=== PATIENT | female | born 1940 | race Caucasian/White ===

== ENCOUNTER → 2020-05-02 07:24 | Outpatient (BNVA) | payer OTHER, SELFPAY | PROVIDERS: PCP Pediatrics; Referring Provider Pediatrics; Visit Provider Internal Medicine | DX: E11.65 Type 2 diabetes mellitus with hyperglycemia (principal); M81.0 Age-related osteoporosis without current pathological fracture; E03.9 Hypothyroidism, unspecified; E78.5 Hyperlipidemia, unspecified; I10 Essential (primary) hypertension; R01.1 Cardiac murmur, unspecified; Z79.899 Other long term (current) drug therapy | CPT/HCPCS: 82947; 99212 ==

== ENCOUNTER → 2020-05-09 14:38 | Outpatient (BNVA) | payer OTHER, SELFPAY | PROVIDERS: PCP Pediatrics; Referring Provider Pediatrics; Visit Provider Internal Medicine Cardiovascular Disease | DX: R01.1 Cardiac murmur, unspecified (principal); I10 Essential (primary) hypertension | CPT/HCPCS: 93005; 99202 ==

== ENCOUNTER → 2020-05-31 11:18 | Outpatient (REF) | payer OTHER, SELFPAY ==
--- NOTE | 2020-05-31 11:25 | CA_ITS ---
Transthoracic Echocardiogram Patient (Last, First, Middle): Hayley Camarillo A Gender: Female Date of : 1940 Age: 79 Procedure Date: 05/31/2020 Procedure Type: Transthoracic Echocardiogram Location: OP Height: 144.78 cm Weight: 50.8 kg BSA: 1.41 m2 Heart Rate: bpm BP: 146 / 60 mmHg Body Artist: DSG Referring MD: Nikolai Melendez MD Symptoms: I10 - Essential (primary) hypertension Study Quality: Fair ECG Rhythm: Sinus Conclusions: - The left ventricular systolic function is normal. The visually estimated ejection fraction is between 65-70%. - There is mild aortic valve regurgitation. - There is mild mitral valve regurgitation. - Small plaque is seen in the sino tubular ridge. Findings Left Ventricle Normal left ventricular cavity size. There is normal left ventricular wall thickness. The left ventricular systolic function is normal. The visually estimated ejection fraction is between 65-70%. There is no evidence of regional wall motion abnormalities. E/E prime ratio is >15, consistent with elevated filling pressures. Evidence suggests grade I (mild) diastolic dysfunction. Right Ventricle Normal right ventricular cavity size and systolic function. Atria The left atrium is normal in size. The right atrium is normal in size. Aortic Valve There is a normal trileaflet aortic valve. There is no aortic valve stenosis. There is mild aortic valve regurgitation. Mitral Valve The mitral valve appears normal. There is mild mitral valve regurgitation. There is no mitral valve stenosis. Pulmonic Valve The pulmonic valve was not well visualized. Tricuspid Valve Normal tricuspid valve structure. There is trace tricuspid valve regurgitation. The pulmonary artery systolic pressure is normal. Great Vessels The aortic annulus, sinuses of valsalva, and asc aorta are normal in size. Small plaque is seen in the sino tubular ridge. Venous The inferior vena cava is normal in size and collapses greater than 50% with inspiration. Pericardium/Pleural There is no evidence of pericardial effusion. Prior Study Comparison No prior study available for comparison. Measurements 2D Linear Measurements IVSd: 0.70 0.6-0.9/0.6-1.0 cm LVIDd: 3.39 3.9-5.3/4.2-5.9 cm LVIDd Index: 2.40 2.4-3.2/2.2-3.1 cm/m2 LVIDs: 2.40 2.0-3.6 cm LVPWd: 0.86 0.7-1.1 cm Ao Root: 2.30 2.1-3.5 cm LA Diam: 2.60 2.7-3.8/3.0-4.0 cm LAIDs Index: 1.84 1.5-2.3 cm/m2 LV Mass: 85.39 67-162/88-224 g LV Mass Index: 60.56 43-95/49-115 g/m2 LVOT Diam: 1.70 3.0+(-)1.3 cm 2D Systolic Function EF 4C: 71.40 >55% EF 2C: 73.90 >55% EF BiP: 71.70 >55% Mitral Valve MV Pk E: 1.24 MV PK A: 1.14 MV Decel Time: 158.00 E/A: 1.10 E'Lateral: 7.74 E'Medial: 7.06 E/E' Med: 17.60 E/E' Lat: 16.00 PHT: 46.00 MVA PHT: 4.78 Decel Manatee: 7.84 Aortic Valve AoV Pk Dewey: 1.36 AoV Pk Grad: 7.00 LVOT LVOT Pk Dewey: 0.98 LVOT Mn Dewey: 0.66 LVOT VTI: 0.26 LVOT Pk Grad: 4.00 LVOT Mn Grad: 2.00 LVOT Diam: 1.70 LVOT Area: 2.27 Diastolic Function MV Pk E: 1.24 MV Pk A: 1.14 E/A: 1.10 E'Medial: 7.06 E/E' Med: 17.60 E' Laterial: 7.74 E/E' Lat: 16.00 Tricuspid Valve TR Pk Dewey: 2.20 TR Pk Grad: 19.00 RA Press: 3.00 RVSP: 22.00 Great Vessels Aorta Ao Root-2D: 2.30 2.0-3.7 cm Ao Asc: 2.70 2.1-3.4 cm Updated in Other Vendor System with Status of Final Lázaro Ortega MD electronically signed on 06/02/2020 12:17:12 PM with status of Final
== END ==
LOC: HO.CARD 11:18
PROVIDERS: Visit Provider Internal Medicine Cardiovascular Disease
DX: I10 Essential (primary) hypertension (principal)
CPT/HCPCS: 93306

== ENCOUNTER → 2020-07-04 14:32 | Outpatient (BNVA) | payer OTHER, SELFPAY | PROVIDERS: PCP Pediatrics; Visit Provider Internal Medicine Cardiovascular Disease | DX: I34.0 Nonrheumatic mitral (valve) insufficiency (principal); I35.1 Nonrheumatic aortic (valve) insufficiency; I10 Essential (primary) hypertension | CPT/HCPCS: 99212 ==

== ENCOUNTER 2020-07-23 09:50 | Outpatient (REF) | payer OTHER, SELFPAY ==
[2020-07-23 11:11] LABS: Alanine Aminotransferase 13 U/L (0-31); Albumin Level 4.7 g/dL (3.5-5.0); Alkaline Phosphatase 116 U/L (39-117); Anion Gap 12 (12-20); Aspartate Amino Transferase 18 U/L (5-31); Bilirubin Total 0.6 mg/dL (0.0-1.0); Blood Urea Nitrogen 17 mg/dL (9-16); Carbon Dioxide 32 mmol/L (22-29); Chloride 101 mmol/L (96-108); Estimated Glomerular Filt Rate > 60; Glucose Random 104 mg/dL (60-115); Potassium 4.1 mmol/L (3.3-5.1); Sodium 141 mmol/L (135-145); Total Protein 7.3 g/dL (6.5-8.0)
[2020-07-23 11:38] LABS: Thyroid Stimulating Hormone 0.02 uIU/mL (0.32-4.0)
[2020-07-23 11:41] LABS: Estimated Average Glucose 114 mg/dL; Hemoglobin A1c % 5.6 %
== END 2020-07-23 09:51 | disposition home or self-care (01) ==
LOC: HO.LAB 09:50
PROVIDERS: PCP Pediatrics; Visit Provider Internal Medicine
DX: E11.65 Type 2 diabetes mellitus with hyperglycemia (principal)
CPT/HCPCS: 36415; 80053; 83036; 84443

== ENCOUNTER → 2020-08-02 07:51 | Outpatient (BNVA) | payer OTHER, SELFPAY | PROVIDERS: PCP Pediatrics; Visit Provider Internal Medicine | DX: E03.9 Hypothyroidism, unspecified (principal); E55.9 Vitamin D deficiency, unspecified | CPT/HCPCS: 82947; 99212 ==

== ENCOUNTER 2020-09-04 11:36 | Outpatient (REF) | payer OTHER, SELFPAY ==
[2020-09-04 13:01] LABS: Albumin Level 4.7 g/dL (3.5-5.0); Calcium 9.7 mg/dL (8.4-10.2); Phosphorus 3.6 mg/dL (2.7-4.5)
[2020-09-04 13:26] LABS: Free T4 (Free Thyroxine) 1.15 ng/dL (0.71-1.85); Thyroid Stimulating Hormone 0.11 uIU/mL (0.32-4.0); Vitamin D 25-OH Total 40.5 ng/mL (>30)
[2020-09-05 08:07] LABS: Triiodothyronine T3 Total 78 ng/dL (76-181)
[2020-09-05 12:11] LABS: PTHI 32 pg/mL (14-64); Prot Elec - Albumin 4.3 g/dL (3.8-4.8); Prot Elec - Alpha1 0.3 g/dL (0.2-0.3); Prot Elec - Alpha2 0.9 g/dL (0.5-0.9); Prot Elec - Beta 1 0.4 g/dL (0.4-0.6); Prot Elec - Beta 2 0.4 g/dL (0.2-0.5); Prot Elec - Gamma 0.7 g/dL (0.8-1.7)
[2020-09-05 14:31] LABS: Calcium, Ionized 5.2 mg/dL (4.8-5.6)
== END 2020-09-04 11:37 | disposition home or self-care (01) ==
LOC: HO.LAB 11:36
PROVIDERS: PCP Pediatrics; Visit Provider Internal Medicine
DX: M81.0 Age-related osteoporosis without current pathological fracture (principal); E03.9 Hypothyroidism, unspecified; E55.9 Vitamin D deficiency, unspecified
CPT/HCPCS: 36415; 82040; 82306; 82310; 82330; 83970; 84075; 84100; 84155; 84165; 84439; 84443; 84480

== ENCOUNTER 2020-09-06 09:00 | Outpatient (REF) | payer OTHER, SELFPAY | END 2020-09-06 09:01 | disposition home or self-care (01) | LOC: HO.LNP 09:00 | PROVIDERS: Visit Provider Internal Medicine | DX: Z13.89 Encounter for screening for other disorder (principal) ==

== ENCOUNTER 2020-09-07 | Outpatient (REF) | payer OTHER, SELFPAY ==
[2020-09-07 14:21] LABS: Creatinine, mg/dL 33.35
[2020-09-07 17:49] LABS: Creatinine, 24Hr Urine 0.6 G/Day (1.0-2.0); Total Volume 24 Hour Urine 1725 mL
[2020-09-08 17:22] LABS: Calcium, 24 Hr Urine 88 mg/24 h; Calcium/Creatinine Ratio 150 mg/g creat (30-275); Creatinine 24Hr Urine 0.59 g/24 h (0.50-2.15)
== END 2020-09-07 00:01 | disposition home or self-care (01) ==
LOC: HO.LNP
PROVIDERS: Visit Provider Internal Medicine
DX: M81.0 Age-related osteoporosis without current pathological fracture (principal)
CPT/HCPCS: 82340; 82523; 82570

== ENCOUNTER → 2020-10-03 07:53 | Outpatient (BNVA) | payer OTHER, SELFPAY | PROVIDERS: PCP Pediatrics; Visit Provider Internal Medicine | DX: M81.0 Age-related osteoporosis without current pathological fracture (principal); E03.9 Hypothyroidism, unspecified; E55.9 Vitamin D deficiency, unspecified | CPT/HCPCS: 82947; 99212 ==

== ENCOUNTER 2020-10-03 08:42 | Outpatient (REF) | payer OTHER, SELFPAY ==
[2020-10-03 10:31] LABS: MANUAL DIFF FLAG NO
[2020-10-03 11:04] LABS: Basophils Percent Auto 0.3 % (0-2); Eosinophils Absolute Auto 0.1 X10*3/uL (0.0-0.4); Eosinophils Percent Auto 1.7 % (0-4); Hemoglobin 12.9 g/dl (12.0-16.0); Imm Gran Abs Auto 0.01 X10*3/uL (0.00-0.03); Imm Gran Pct Auto 0.2 % (0.0-0.4); Lymphocytes Percent Auto 33.8 % (20-40); Mean Corpuscular HGB Conc 33.1 g/dl (31.0-35.0); Mean Corpuscular Hemoglobin 30.4 pg (27.0-33.0); Mean Platelet Volume 10.6 fL (9.4-12.3); Monocytes Absolute Auto 0.5 X10*3/uL (0.1-1.2); Monocytes Percent Auto 8.1 % (2-11); Neutrophils Absolute Auto 3.3 X10*3/uL (2.0-8.3); Neutrophils Percent Auto 55.9 % (45-73); Platelet Count 268 X10*3/uL (160-400); Red Blood Count 4.24 X10*6/uL (4.20-5.50); Red Cell Distribution Width 12.5 % (11.0-16.0); White Blood Count 5.9 X10*3/uL (4.8-10.8)
[2020-10-05 22:03] LABS: Kappa, Serum 176 mg/dL (176-443); Kappa/Lambda Ratio, Serum 1.48 (1.29-2.55); Lambda, Serum 119 mg/dL (91-240)
== END 2020-10-03 08:43 | disposition home or self-care (01) ==
LOC: HO.10HDL 08:42
PROVIDERS: Visit Provider Internal Medicine
DX: M81.0 Age-related osteoporosis without current pathological fracture (principal)
CPT/HCPCS: 36415; 83883; 85025

== ENCOUNTER 2020-11-12 14:02 | Outpatient (REF) | payer OTHER, SELFPAY ==
[2020-11-12 15:40] LABS: Thyroid Stimulating Hormone 4.18 uIU/mL (0.32-4.0)
[2020-11-13 13:21] LABS: Triiodothyronine T3 Total 56 ng/dL (76-181)
== END 2020-11-12 14:03 | disposition home or self-care (01) ==
LOC: HO.LAB 14:02
PROVIDERS: PCP Pediatrics; Visit Provider Internal Medicine
DX: E03.9 Hypothyroidism, unspecified (principal)
CPT/HCPCS: 36415; 84439; 84443; 84480

== ENCOUNTER → 2020-11-21 07:35 | Outpatient (BNVA) | payer OTHER, SELFPAY | PROVIDERS: PCP Pediatrics; Visit Provider Internal Medicine | DX: E03.9 Hypothyroidism, unspecified (principal) ==

== ENCOUNTER 2020-11-22 14:43 | Outpatient (REF) | payer OTHER, SELFPAY ==
[2020-11-22 16:19] LABS: Alanine Aminotransferase 17 U/L (0-31); Albumin Level 4.5 g/dL (3.5-5.0); Alkaline Phosphatase 103 U/L (39-117); Anion Gap 12 (12-20); Aspartate Amino Transferase 20 U/L (5-31); Bilirubin Total 0.5 mg/dL (0.0-1.0); Blood Urea Nitrogen 18 mg/dL (9-16); Calcium 9.7 mg/dL (8.4-10.2); Carbon Dioxide 30 mmol/L (22-29); Chloride 103 mmol/L (96-108); Estimated Glomerular Filt Rate > 60; Glucose Random 87 mg/dL (60-115); Potassium 4.9 mmol/L (3.3-5.1); Sodium 140 mmol/L (135-145); Total Protein 6.8 g/dL (6.5-8.0)
[2020-11-22 16:41] LABS: Free T4 (Free Thyroxine) 0.88 ng/dL (0.71-1.85); Thyroid Stimulating Hormone 4.24 uIU/mL (0.32-4.0)
[2020-11-23 13:42] LABS: Calcium (PTHI) 9.8 mg/dL (8.6-10.4); PTHI 52 pg/mL (14-64)
== END 2020-11-22 14:44 | disposition home or self-care (01) ==
LOC: HO.LAB 14:43
PROVIDERS: PCP Pediatrics; Visit Provider Internal Medicine
DX: M81.0 Age-related osteoporosis without current pathological fracture (principal); E03.9 Hypothyroidism, unspecified; E55.9 Vitamin D deficiency, unspecified
CPT/HCPCS: 36415; 80053; 82306; 83970; 84439; 84443

== ENCOUNTER 2021-01-21 12:30 | Outpatient (REF) | payer OTHER, SELFPAY ==
[2021-01-21 13:47] LABS: Alanine Aminotransferase 17 U/L (0-31); Albumin Level 4.6 g/dL (3.5-5.0); Alkaline Phosphatase 95 U/L (39-117); Anion Gap 14 (12-20); Aspartate Amino Transferase 25 U/L (5-31); Bilirubin Total 0.7 mg/dL (0.0-1.0); Blood Urea Nitrogen 18 mg/dL (9-16); Calcium 10.1 mg/dL (8.4-10.2); Carbon Dioxide 29 mmol/L (22-29); Chloride 102 mmol/L (96-108); Estimated Glomerular Filt Rate > 60; Glucose Random 100 mg/dL (60-115); Potassium 4.3 mmol/L (3.3-5.1); Sodium 141 mmol/L (135-145); Total Protein 7.1 g/dL (6.5-8.0)
[2021-01-21 14:08] LABS: Free T4 (Free Thyroxine) 1.09 ng/dL (0.71-1.85); Thyroid Stimulating Hormone 4.11 uIU/mL (0.32-4.0); Vitamin D 25-OH Total 37.7 ng/mL (>30)
[2021-01-23 11:32] LABS: Calcium (PTHI) 9.9 mg/dL (8.6-10.4); PTHI 54 pg/mL (14-64)
== END 2021-01-21 12:31 | disposition home or self-care (01) ==
LOC: HO.LAB 12:30
PROVIDERS: PCP Pediatrics; Visit Provider Internal Medicine
DX: E03.9 Hypothyroidism, unspecified (principal); M81.0 Age-related osteoporosis without current pathological fracture; E55.9 Vitamin D deficiency, unspecified
CPT/HCPCS: 36415; 80053; 82306; 83970; 84439; 84443

== ENCOUNTER → 2021-02-06 07:57 | Outpatient (BNVA) | payer OTHER, SELFPAY | PROVIDERS: PCP Pediatrics; Visit Provider Internal Medicine | DX: M81.0 Age-related osteoporosis without current pathological fracture (principal); E03.9 Hypothyroidism, unspecified; E55.9 Vitamin D deficiency, unspecified | CPT/HCPCS: 99212 ==

== ENCOUNTER 2021-03-01 11:07 | Outpatient (REF) | payer OTHER, SELFPAY ==
[2021-03-01 12:39] LABS: Free T4 (Free Thyroxine) 1.04 ng/dL (0.71-1.85); Thyroid Stimulating Hormone 2.26 uIU/mL (0.32-4.0)
== END 2021-03-01 11:08 | disposition home or self-care (01) ==
LOC: HO.LAB 11:07
PROVIDERS: PCP Pediatrics; Visit Provider Internal Medicine
DX: E03.9 Hypothyroidism, unspecified (principal)
CPT/HCPCS: 36415; 84439; 84443

== ENCOUNTER 2023-02-19 11:07 | Emergency (ER) | payer OTHER, SELFPAY ==
--- NOTE | ~2023-02-19 | CT_ITS ---
EXAMINATION: CT HEAD WITHOUT CONTRAST CLINICAL INFORMATION: Acute head injury. COMPARISON: None available. TECHNIQUE: Contiguous axial imaging was performed from the skull base to vertex without intravenous administration of contrast. Coronal and sagittal reformatted images were obtained. This CT examination was performed using dose optimization techniques as appropriate, variously including the following: *Automated exposure control *Adjustment of mA and/or kV according to patient size (this includes techniques or standardized protocols for targeted exams where dose is matched to indication/reason for exam; i.e. extremities or head) *Use of iterative reconstruction technique DLP: 571 mGy-cm FINDINGS: There is mild widening of the cortical sulci and associated ventriculomegaly. The lateral ventricles are symmetrical. The third and fourth ventricles are in their normal midline position. The basilar and prepontine cisterns are unremarkable. Mild periventricular microvascular changes are seen. There is no acute intra or extracerebral abnormality. There is no mass effect or midline shift. There is a small to moderate subgaleal/subcutaneous hematoma in the midline posterior parietal region without acute underlying abnormality. Sections through the bony calvarium are unremarkable. The orbits are intact. The paranasal sinuses are clear. The mastoid air cells are clear. CT/CT head/brain wo IV con IMPRESSION: 1. No acute intracranial pathology. 2. Small to moderate midline posterior parietal subgaleal/subcutaneous hematoma without acute underlying abnormality. Correlate with physical exam.
[2023-02-19 11:16] VITALS: BP 168/96; PULSE 91; O2SAT 94; BMI 29.4
[2023-02-19 11:19] VITALS: BP 198/86; PULSE 92; RESP 18; TEMP 36.7; O2SAT 95; O2SAT 97
--- NOTE | 2023-02-19 11:27 | PC.NURSE ---
pt a&ox3, vss, pt biba after post fall playing pickleball. pt denies any dizziness prior to fall - states that she was chasing the ball/tripped&fell. denies any other sx at the moment aside from 9/10 pain located in the back of her head. small skin tear noted by provider on back of head. icepack applied to back of head to help with pain/swelling. call sepulveda placed within reach.
--- NOTE | 2023-02-19 11:44 | ED.FALL ---
HPI - Fall General Chief Complaint: Fall Stated Complaint: LAC ON BACK OF HEAD/ DIZZY Time Seen by Provider: 02/19/23 11:16 Source: patient and EMS Mode of arrival: ambulatory Limitations: no limitations History of Present Illness HPI Narrative: 82-year-old female present with an acute head injury. Patient was walking backwards when she fell, striking her head without loss of consciousness. She currently has a [id number] headache. The pain does not radiate. Not worse with light or sound. There is no nausea vomiting. There is no focal neurologic deficits. Patient is currently not on any blood thinning medications. Patient denies any other injuries. Unfortunately, patient did not make it to her pickleball match. Related Data Home Medications Medication Instructions Recorded Confirmed blood sugar diagnostic #10 ea 05/02/20 02/06/21 famotidine 20 mg tablet 20 mg PO BID 05/02/20 02/06/21 hydrochlorothiazide 50 mg tablet 50 mg PO DAILY 05/02/20 02/06/21 lancets 28 gauge #100 ea 05/02/20 02/06/21 losartan 25 mg tablet 25 mg PO DAILY 05/02/20 02/06/21 simvastatin 20 mg tablet 20 mg PO BEDTIME 05/02/20 02/06/21 cholecalciferol (vitamin D3) 25 25 mcg PO DAILY 05/09/20 02/06/21 mcg (1,000 unit) capsule doxepin 10 mg capsule 10 mg PO BEDTIME 08/02/20 02/06/21 Previous Rx's Medication Instructions Recorded levothyroxine 100 mcg tablet 100 mcg PO DAILY 90 days #36 tabs 03/14/21 levothyroxine 50 mcg tablet 50 mcg PO DAILY #48 tabs 03/14/21 Allergies Allergy/AdvReac Type Severity Reaction Status Date / Time No Known Allergies Allergy Verified 02/19/23 11:15 Review of Systems Review of Systems: CONSTITUTIONAL: Denies weight loss, fever and chills. HEENT: Denies changes in vision and hearing. RESPIRATORY: Denies SOB and cough. CV: Denies palpitations no CP. GI: Denies abdominal pain, nausea, vomiting and diarrhea. : Denies dysuria and urinary frequency. MSK: Denies myalgia and joint pain. SKIN: Denies rash and pruritus. NEUROLOGICAL: Denies headache and syncope. PSYCHIATRIC: Denies recent changes in mood. Denies anxiety and depression. All other ROS are negative unless in HPI [facility] Past Medical History Medical History Heart murmur HLD (hyperlipidemia) HTN (hypertension) Hypothyroidism Osteoporosis T2DM (type 2 diabetes mellitus) Vitamin D deficiency Surgical History Hx of tonsillectomy Hx of total hysterectomy with removal of both tubes and ovaries Family History Family History Father Stomach cancer Social History Social History Alcohol intake: never Smoked in Last 30 Days: No Use of substances other than those prescribed or required for medical reasons: No Advance Directives: No Physical Exam Vital Signs: Vital Signs: Last Vital Signs Temp 98.1 F 02/19/23 11:19 Pulse 68 02/19/23 12:57 Resp 16 02/19/23 12:57 BP 171/64 H 02/19/23 12:57 Pulse Ox 94 02/19/23 12:57 O2 Del Method Room Air 02/19/23 12:57 BMI result Body Mass Index 29.4 GEN: Well developed, no acute distress, alert, oriented HEENT: Normocephalic, Occipital scalp skin tear /scalp hematoma with mild active bleeding, normal external ears, nose appears normal, no oropharyngeal edema or exudates Eyes: Normal to appearance Neck: Supple, no lymphadenopathy Respiratory: Talks in complete sentences, no respiratory distress, clear to auscultation bilaterally Cardiovascular: Regular rate and rhythm, no murmurs rubs or gallops Abdomen: Soft, nontender, nondistended, no guarding, no rebound Back: No CVA tenderness Extremities: No clubbing cyanosis or edema Neurologic: No focal neurologic deficits, cranial nerves 2-12 intact, strength is 5/5 bilaterally Skin: No rash Course Course Course Narrative: the workup is complete. CT scan of the head shows scalp contusion. This was discussed with the patient. Condition, there is microvascular disease been no intracranial bleeding. I discussed that with patient as well. She can follow-up with her primary care provider to discuss potential of aspirin and statin therapy. Medications Administered Discontinued Medications Generic Name Dose Route Start Last Admin Trade Name Freq PRN Reason Stop Dose Admin Acetaminophen 975 mg 02/19/23 12:28 02/19/23 12:56 Acetaminophen 325 Mg Tablet PO 02/19/23 12:29 975 mg ONCE ONE Administration Medical Decision Making Medical Decision Making [facility] Narrative: patient presents with an acute head injury. Differential diagnosis includes concussion, mild head injury, subdural hematoma, epidural hematoma, subarachnoid hemorrhage. There is no prodrome. This appears to be mechanical fall based on the history. Fortunately patient is not on any blood thinning medications. However, given patient's age, will obtain a CT scan of the head to rule out any significant traumatic injury. Differential Diagnosis Differential Diagnoses: The differential diagnosis associated with the presentation includes ( See above) Admission/Observation Consideration of admission/observation: Escalation of care including admission/observation considered Independent Interpretation I performed an independent interpretation of an: CT Scan ( head: No acute traumatic injury Intracranial) Radiology Impression Discussion of test interpretation with radiology: I have reviewed the radiologist's reading. Radiologist Impression: CT/CT head/brain wo IV con IMPRESSION: 1.? No acute intracranial pathology. 2.? Small to moderate midline posterior parietal subgaleal/subcutaneous hematoma without acute underlying abnormality. Correlate with physical exam. ? Independent Historian Clinical information obtained from an independent historian. History obtained from or confirmed by: EMS Prescription Management I considered prescription management with: Pain Medication Discharge Plan Discharge Clinical Impression: Head injury, Scalp hematoma, Cerebral microvascular disease Patient Disposition: Home, Self-Care Instructions: Head Injury (ED), Scalp Contusion in Adults (ED) Additional Instructions: discuss your CT results with your primary care doctor - microvascular findings - may warrant aspirin and statin therapy Prescriptions: No Action levothyroxine 100 mcg tablet 100 mcg PO DAILY 90 Days Qty: 36 1RF Rx Instructions: 100 mcg tab Mon-Wed and 50mcg tab Thurs-Sun levothyroxine 50 mcg tablet 50 mcg PO DAILY Qty: 48 1RF Rx Instructions: 100 mcg tab Mon-Wed and 50mcg tab Thurs-Sun cholecalciferol (vitamin D3) 25 mcg (1,000 unit) capsule 25 mcg PO DAILY simvastatin 20 mg tablet 20 mg PO BEDTIME hydrochlorothiazide 50 mg tablet 50 mg PO DAILY losartan 25 mg tablet 25 mg PO DAILY famotidine 20 mg tablet 20 mg PO BID (DME) lancets 28 gauge misc See Rx Instructions topical .MEDSUPPLY Qty: 100 Rx Instructions: As directed (DME) FreeStyle Lite Strips Strip See Rx Instructions Not Applicable .MEDSUPPLY Qty: 10 Rx Instructions: As directed doxepin 10 mg capsule 10 mg PO BEDTIME Referrals: Sara Muir MD [Primary Care Provider] - 5 days
[2023-02-19] MEDS: Acetaminophen 325 MG TABLET 975 MG PO (12:56)
[2023-02-19 12:57] VITALS: BP 171/64; PULSE 68; RESP 16; O2SAT 94
--- NOTE | 2023-02-19 12:59 | PC.NURSE ---
pt a&ox3, vss aside from hypertension - pt verbalizes that takes medication regularly. provider aware of elevated BP. pt verbalizing pain decreased to a 5/10. medication administered per provider order. pt resting comfortably watching tv in no apparent distress. call sepulveda placed within reach.
--- NOTE | 2023-02-19 14:20 | PC.NURSE ---
pt spoke w/ provider. pt waiting for d/c paperwork to be put on. vss and up to date. pt verbalized pain decreased to a 3/10 post tylenol administration. call sepulveda placed within reach.
[2023-02-19 14:21] VITALS: BP 156/61; PULSE 58; RESP 16; O2SAT 98
== END 2023-02-19 14:37 | disposition home or self-care (01) ==
PROVIDERS: Emergency Provider Emergency Medicine; PCP Internal Medicine
DX: S00.03XA Contusion of scalp, initial encounter (principal); S09.8XXA Other specified injuries of head, initial encounter; W01.0XXA Fall on same level from slipping, tripping and stumbling without subsequent striking against object, initial encounter; I67.9 Cerebrovascular disease, unspecified; E11.9 Type 2 diabetes mellitus without complications; I10 Essential (primary) hypertension; E78.5 Hyperlipidemia, unspecified; Y93.89 Activity, other specified; Y92.830 Public park as the place of occurrence of the external cause; Y99.9 Unspecified external cause status; Z79.899 Other long term (current) drug therapy
CPT/HCPCS: 70450; 99284